=== PATIENT | male | born 1940 | race Caucasian/White ===

== ENCOUNTER → 2018-10-24 | Outpatient (CLI) | payer MEDICARE ==
[~2018-10-24] MED LIST: AEC81 PO; ATOR40TA69 PO; CLOP75TA14 PO; IRBE75TA10 PO; METO50TA9 PO; Nitroglycerin SL; REGADENOSON 0.4 MG/5 ML PF SYG IVP SCH
== END | disposition home or self-care (01) ==
LOC: SHCH 08:37
PROVIDERS: ATTEND Internal Medicine Cardiovascular Disease
DX: I25.2 Old myocardial infarction (principal)
CPT/HCPCS: 78452; 93017; 96374; A9500 ×2; J2785

== ENCOUNTER 2021-12-12 13:18 | Emergency (ER) | payer MEDICARE ==
[~2021-12-12] VITALS: Ht 175.3 cm; Wt 86.2 kg
[~2021-12-12 13:18] MED LIST changes: -IRBE75TA10 PO; +IRBE75TA9 PO; -REGADENOSON 0.4 MG/5 ML PF SYG IVP SCH
[2021-12-12 13:26] VITALS: BP 118/59
[2021-12-12 13:55] LABS: BASOPHILS % (AUTO) 0.2 % (0.0-5.0); EOSINOPHILS % (AUTO) 0.1 % (0.0-8.0); HEMATOCRIT 39.9 % (42-54); MEAN CORPUSCULAR HEMOGLOBIN 32.4 pg (27.0-33.0); MEAN CORPUSCULAR HGB CONC 33.8 g/dL (32.0-36.0); MEAN CORPUSCULAR VOLUME 95.7 fL (79-99); MONOCYTES % (AUTO) 8.8 % (3.0-13.0); NEUTROPHILS % (AUTO) 82.5 % (40.0-77.0); PLATELET COUNT (AUTO) 124 K/uL (130-400); RED BLOOD CELL COUNT(AUTO) 4.17 MIL/uL (4.50-6.20); RED CELL DISTRIBUTION WIDTH 13.4 % (11.0-15.5); WHITE BLOOD COUNT (AUTO) 8.1 K/uL (4.8-10.8)
[2021-12-12] MEDS ORDERED: MECLIZINE HCL 25 MG TABLET PO ONE (14:00)
[2021-12-12] MEDS ORDERED: GUAIFENESIN-CODEINE 5 ML SYRUP PO ONE (14:00)
[2021-12-12] MEDS ORDERED: ALBUTEROL 0.083% 2.5 MG/3 ML INH IH PRN (14:00)
[2021-12-12] MEDS ORDERED: DEXAMETHASONE SOD PHOSPHATE 4 MG/ML 1ML VIAL IVP ONE (14:00)
[2021-12-12 14:13] LABS: ALBUMIN 3.3 g/dL (3.5-5.0); CREATININE 1.3 mg/dL (0.5-1.5); POTASSIUM 3.6 mmol/L (3.5-5.1); TOTAL PROTEIN, SERUM 6.6 g/dL (6.0-8.3)
[2021-12-12] MEDS ORDERED: PRED20TA3 PO (14:42)
[2021-12-12] MEDS ORDERED: ALBU8.5H8 IH (14:42)
== END 2021-12-12 15:28 | disposition home or self-care (01) ==
LOC: EDH 13:18
DX: J40 Bronchitis, not specified as acute or chronic (principal); R42 Dizziness and giddiness; Z79.52 Long term (current) use of systemic steroids; Z79.82 Long term (current) use of aspirin; Z79.899 Other long term (current) drug therapy; Z95.5 Presence of coronary angioplasty implant and graft
CPT/HCPCS: 36415; 71045; 80053; 84484; 85025; 93005; 94640; 96374; 99285; J1100; 96375

== ENCOUNTER 2022-10-31 16:06 | Emergency (ER) | payer MEDICARE, OTHER ==
[~2022-10-31] VITALS: Ht 175.3 cm; Wt 88.5 kg
[~2022-10-31 16:06] MED LIST changes: +ALBU8.5H8 IH; +CLOP-31 PO; -CLOP75TA14 PO; +PRED20TA3 PO
[2022-10-31 16:47] LABS: BASOPHILS % (AUTO) 0.6 % (0.0-5.0); EOSINOPHILS % (AUTO) 5.7 % (0.0-8.0); HEMATOCRIT 38.8 % (42-54); LYMPHOCYTES % (AUTO) 27.1 % (21.0-51.0); MEAN CORPUSCULAR HEMOGLOBIN 31.1 pg (27.0-33.0); MEAN CORPUSCULAR HGB CONC 32.7 g/dL (32.0-36.0); MEAN CORPUSCULAR VOLUME 94.9 fL (79-99); MONOCYTES % (AUTO) 13.1 % (3.0-13.0); NEUTROPHILS % (AUTO) 53.3 % (40.0-77.0); PLATELET COUNT (AUTO) 150 K/uL (130-400); RED BLOOD CELL COUNT(AUTO) 4.09 MIL/uL (4.50-6.20); RED CELL DISTRIBUTION WIDTH 13.5 % (11.0-15.5); WHITE BLOOD COUNT (AUTO) 5.1 K/uL (4.8-10.8)
[2022-10-31 17:00] LABS: CREATININE 1.1 mg/dL (0.5-1.5); POTASSIUM 4.2 mmol/L (3.5-5.1)
[2022-10-31 17:05] LABS: ALBUMIN 3.5 g/dL (3.5-5.0); MAGNESIUM 2.1 mg/dL (1.80-2.40); TOTAL PROTEIN, SERUM 6.3 g/dL (6.0-8.3)
[2022-10-31 17:18] VITALS: BP 150/59
[2022-10-31] MEDS ORDERED: KETOROLAC 30MG VIAL (30MG/ML) IVP ONE (18:00)
== END 2022-10-31 19:23 | disposition home or self-care (01) ==
LOC: EDH 16:06
DX: M94.0 Chondrocostal junction syndrome [Tietze] (principal); I10 Essential (primary) hypertension; Z79.52 Long term (current) use of systemic steroids; Z79.82 Long term (current) use of aspirin; Z79.899 Other long term (current) drug therapy; Z95.5 Presence of coronary angioplasty implant and graft
CPT/HCPCS: 99285; 96374; 71045; 83735; 84484 ×2; 80053; 83880; 85025; 36415; 93005; J1885